=== PATIENT | female | born 2000 | race African-American/Black ===

== ENCOUNTER 2024-08-21 12:07 | Emergency (ER) | payer MEDICAID, SELFPAY ==
--- NOTE | 2024-08-21 13:11 | ED_ITS ---
HPI - General Adult General Chief complaint: General Medical Stated complaint: low iron Time Seen by Provider: 08/21/24 16:52 Source: patient Mode of arrival: ambulatory Limitations: no limitations History of Present Illness ED Provider: Elba Adan NP HPI narrative: Patient is a 24-year-old female who presents emergency department coming from [facility] for evaluation of generalized weakness and fatigue. She states that this typically happens due to having iron-deficiency anemia. She reports that she has not been taking her iron supplementation since April of this year. When asked, she states that her prescription ran out. She has a new prescription available at the pharmacy is getting transferred to a local pharmacy and [facility] staff will be picking this up on Saturday as they coordinate her medication administration. However, they wanted her to be checked out to make sure that she was not significantly anemic. She denies dizziness, lightheadedness, vision changes, neck pain, chest pain, shortness of breath, numbness or tingling of the extremities. Related Data Allergies Allergy/AdvReac Type Severity Reaction Status Date / Time olanzapine [From Zyprexa] AdvReac Confusion Verified 08/21/24 13:14 Review of Systems 2 Review of Systems: Yes all other systems are reviewed and are negative PMFSH Past Medical History Attestation statement: The following information was validated with the patient. Source: old records reviewed Social History Social History Advance Directives: No Advance Directives Information Provided: Yes Physical Exam ED Vital Signs: Vital Signs - 24 hr 08/21/24 13:12 08/21/24 16:57 Temperature 97.1 F 97.8 F Pulse Rate 82 71 Respiratory Rate 18 16 Blood Pressure 137/85 97/64 Pulse Oximetry 100 100 Oxygen Delivery Method Room Air Room Air BMI result Body Mass Index 49.1 Appearance: Alert.?Oriented to person, place and time. No acute distress.?Normal affect. Eyes: Pupils equal, round and reactive to light.? ENT: Pharynx normal.?? Neck: Normal inspection.? Neck supple.?? CVS: Heart sounds normal. Normal heart rate and rhythm.? Pulses normal.?? Respiratory: No respiratory distress.? Lung sounds clear to auscultation bilaterally?? Abdomen: Soft and non-tender. Normoactive bowel sounds. Skin: Skin warm and dry.? Normal skin color.? Extremities: No lower extremity edema.? No calf ttp? Neuro: Moves all extremities spontaneously. Sensation intact bilaterally. CN II- XII intact. No focal neuro deficits. Ambulates with normal steady gait. Course Course Course Narrative: RME, this is a rapid medical exam performed by Allan Rogel please refer to primary provider for complete H&P- 24 year old female with history of iron deficiency anemia presents for evaluation of weakness. She believes her iron is low because she has not been taking her iron supplementation since April. Plan for labs and iron studies Medical Decision Making Medical Decision Making [facility] Narrative: Patient is a 24-year-old female who presents emergency department for evaluation of generalized weakness and fatigue setting of not having been taking her iron supplementation over the past 4 months as it had ran out. There is a plan in place for her to begin taking the medication over the next 2 days, she declines a new prescription being sent to a local pharmacy so that she may pick this up to day, as the staff at [facility] need to arrange this accordingly. I reviewed serum labs obtained prior to my assumption of care, CBC is without leukocytosis anemia or thrombocytopenia. No significant electrolyte derangement. No KIM. Iron studies with a normal iron level and normal TIBC, iron percentage saturation slightly low at 12%, consistent with iron-deficiency. HCG is negative. Viral serologies are negative. She has no focal neurological deficits, not consistent with CVA. She is ambulatory with a steady gait. As this has been her symptoms consistently in the past with untreated iron deficiency, seems to be the most likely pathology. Differential Diagnosis Differential Diagnoses: The differential diagnosis associated with the presentation includes (See narrative above) Admission/Observation Consideration of admission/observation: Escalation of care including admission/observation considered Lab Data [facility] Lab Attestation statement: I reviewed the patient's lab results. (See narrative above) 08/21/24 15:19 08/21/24 15:19 Labs: Lab Results 08/21/24 Range/Units 15:19 WBC 7.0 (4.8-10.8) X10*3/uL RBC 4.63 (4.20-5.50) X10*6/uL Hgb 12.2 (12.0-16.0) g/dl Hct 37.9 (37.0-47.0) % MCV 81.9 (80.0-98.0) fL MCH 26.3 L (27.0-33.0) pg MCHC 32.2 (31.0-35.0) g/dl RDW 13.9 (11.0-16.0) % Plt Count 269 (160-400) X10*3/uL MPV 10.7 (9.4-12.3) fL Immature Gran % (Auto) 0.1 (0.0-0.4) % Neut % (Auto) 71.0 (45-73) % Lymph % (Auto) 22.7 (20-40) % [place] % (Auto) 5.2 (2-11) % Eos % (Auto) 0.6 (0-4) % Baso % (Auto) 0.4 (0-2) % Lymph # (Auto) 1.6 (1.2-4.9) X10*3/uL [place] # (Auto) 0.4 (0.1-1.2) X10*3/uL Eos # (Auto) 0.0 (0.0-0.4) X10*3/uL Baso # (Auto) 0.0 (0.0-0.2) X10*3/uL Abs Immat Gran (auto) 0.01 (0.00-0.03) X10*3/uL Absolute Neuts (auto) 4.9 (2.0-8.3) x10*3/uL Absolute Nucleated RBC 0.000 (0.0-0.012) X10*3/uL Nucleated RBC % (auto) 0.0 (0.0-0.2) /100WBC Sodium 139 (135-145) mmol/L Potassium 4.4 (3.3-5.1) mmol/L Chloride 109 H (96-108) mmol/L Carbon Dioxide 23 (22-29) mmol/L Anion Gap 11 L (12-20) BUN 10 (9-16) mg/dL Creatinine 0.83 (0.5-1.4) mg/dL Estim Creat Clear Calc 127.2 Estimated GFR > 60 Random Glucose 95 (60-115) mg/dL Calcium 9.8 (8.4-10.2) mg/dL Iron 34 (30-160) mcg/dL TIBC 284 (228-428) mcg/dL % Saturation 12 L (15-50) % Unsat Iron Binding 250 ug/dL Total Bilirubin 0.3 (0.0-1.0) mg/dL AST 21 (5-31) U/L ALT 21 (0-31) U/L Alkaline Phosphatase 51 (39-117) U/L Total Protein 7.7 (6.5-8.0) g/dL Albumin 4.3 (3.5-5.0) g/dL Lipase 10 (8-78) U/L Beta HCG, Quant < 2 mIU/mL Influenza Type A (PCR) NEGATIVE (Negative) Influenza Type B (PCR) NEGATIVE (Negative) RSV RNA Qual (PCR) NEGATIVE (Negative) SARS-CoV-2 RNA (RT-PCR) NEGATIVE (Negative) External Record Review External record reviewed: Outpatient record Prescription Management I considered prescription management with: Other (See narrative above) Discharge Plan Discharge Clinical Impression: Iron deficiency anemia Patient Disposition: Home, Self-Care Instructions: Iron Deficiency Anemia (ED), Iron Rich Diet (ED) Additional Instructions: As discussed, it is very important that you continue to take your iron supplement as prescribed to help improve your symptoms. As you know, these symptoms are very common with your iron deficiency. Return to emergency department any new or worsening symptoms or concerns Referrals: Physician,Unknown J [Primary Care Provider] - Print Language: Portuguese
[2024-08-21 13:12] VITALS: BP 137/85; PULSE 82; RESP 18; TEMP 36.2; O2SAT 100; BMI 49.1
[2024-08-21 15:23] LABS: MANUAL DIFF FLAG NO
[2024-08-21 15:30] LABS: Basophils Percent Auto 0.4 % (0-2); Eosinophils Percent Auto 0.6 % (0-4); Hematocrit 37.9 % (37.0-47.0); Hemoglobin 12.2 g/dl (12.0-16.0); Imm Gran Abs Auto 0.01 X10*3/uL (0.00-0.03); Imm Gran Pct Auto 0.1 % (0.0-0.4); Lymphocytes Absolute Auto 1.6 X10*3/uL (1.2-4.9); Lymphocytes Percent Auto 22.7 % (20-40); Mean Corpuscular HGB Conc 32.2 g/dl (31.0-35.0); Mean Corpuscular Hemoglobin 26.3 pg (27.0-33.0); Mean Corpuscular Volume 81.9 fL (80.0-98.0); Mean Platelet Volume 10.7 fL (9.4-12.3); Monocytes Absolute Auto 0.4 X10*3/uL (0.1-1.2); Monocytes Percent Auto 5.2 % (2-11); Neutrophils Absolute Auto 4.9 x10*3/uL (2.0-8.3); Platelet Count 269 X10*3/uL (160-400); Red Blood Count 4.63 X10*6/uL (4.20-5.50); Red Cell Distribution Width 13.9 % (11.0-16.0)
[2024-08-21 15:54] LABS: Albumin Level 4.3 g/dL (3.5-5.0); Anion Gap 11 (12-20); Aspartate Amino Transferase 21 U/L (5-31); Bilirubin Total 0.3 mg/dL (0.0-1.0); Blood Urea Nitrogen 10 mg/dL (9-16); Calcium 9.8 mg/dL (8.4-10.2); Carbon Dioxide 23 mmol/L (22-29); Chloride 109 mmol/L (96-108); Creatinine Clr Calc Pharmacy 127.2; Estimated Glomerular Filt Rate > 60; Glucose Random 95 mg/dL (60-115); HCG Quantitative < 2 mIU/mL; Iron 34 mcg/dL (30-160); Lipase 10 U/L (8-78); Percent Iron Saturation 12 % (15-50); Potassium 4.4 mmol/L (3.3-5.1); Sodium 139 mmol/L (135-145); Total Iron Binding Capacity 284 mcg/dL (228-428); Total Protein 7.7 g/dL (6.5-8.0); Unsaturated Iron Binding 250 ug/dL
[2024-08-21 16:05] LABS: Influenza A PCR NEGATIVE (Negative); Influenza B PCR NEGATIVE (Negative); Resp Syncy Virus RNA Qual PCR NEGATIVE (Negative); SARS COV2 PCR INHOUSE NEGATIVE (Negative)
[2024-08-21 16:23] LABS: Alanine Aminotransferase 21 U/L (0-31); Alkaline Phosphatase 51 U/L (39-117)
[2024-08-21 16:57] VITALS: BP 97/64; PULSE 71; RESP 16; TEMP 36.6; O2SAT 100
[2024-08-21] MEDS: Acetaminophen 325 MG TABLET 650 MG PO (17:33)
[2024-08-21 17:35] VITALS: BP 97/64; PULSE 71; RESP 16; TEMP 36.6; O2SAT 100
== END 2024-08-21 17:36 | disposition home or self-care (01) ==
PROVIDERS: Physician Assistant; Emergency Provider Emergency Medicine
DX: D50.9 Iron deficiency anemia, unspecified (principal); R53.1 Weakness; R53.83 Other fatigue; Z03.818 Encounter for observation for suspected exposure to other biological agents ruled out
CPT/HCPCS: 0241U; 80053; 83540; 83690; 84702; 85025; 99283

== ENCOUNTER 2024-09-19 18:20 | Emergency (ER) | payer MEDICAID, SELFPAY ==
[2024-09-19 18:36] VITALS: BP 124/60; PULSE 99; RESP 19; TEMP 36.6; O2SAT 99; BMI 39.6
--- NOTE | 2024-09-19 18:39 | ED_ITS ---
HPI - General Adult General Chief complaint: General Medical Stated complaint: Preg test? Having symptoms.Gave 8mos ago Time Seen by Provider: 09/19/24 20:02 Source: patient Mode of arrival: ambulatory Limitations: no limitations History of Present Illness ED Provider: NEWTON SILVERIO PA-C HPI narrative: 24 year old female with no significant past medical history presents to the ED t kike from [facility] requesting a test. Admits to symptoms of feeling hormonal , low iron levels (shown in recent blood work), and weight fluctuations. Reports similar symptoms with both of her pregnancies. She is currently taking daily iron supplementation. Reports negative urine tests x2 at home. Denies fever, chills, nausea or vomiting, vaginal discharge or bleeding, abdominal pain/cramping. She admits that her last menstrual period was over 17 months ago as she gave to her most recent child 8 months ago. She also reports Nexplanon insertion in March of 2024. Related Data Previous Rx's ?Medication ?Instructions ?Recorded ferrous sulfate 325 mg (65 mg 325 mg PO Q OTHER DAY #30 tabs 09/19/24 iron) tablet Allergies Allergy/AdvReac Type Severity Reaction Status Date / Time almond Allergy Rash Verified 09/19/24 18:38 peanut Allergy Anaphylaxis Verified 09/19/24 18:38 tree nut Allergy Anaphylaxis Verified 09/19/24 18:38 olanzapine [From Zyprexa] AdvReac Confusion Verified 09/19/24 18:38 Review of Systems Review of Systems: Constitutional: No fever, chills, fatigue, night sweats, weight changes ENT/Mouth: No ear pain, hearing loss, nasal congestion, sinus pain, rhinorrhea, sore throat Eyes: No eye pain, swelling, redness, vision changes, discharge Cardio: No chest pain, palpitations, SUAREZ, orthopnea, peripheral edema Pulm: No SOB, cough, sputum, wheezing, dyspnea, hemoptysis GI: No nausea, vomiting, hematemesis, abdominal pain, diarrhea, constipation, hematochezia, melena : No irregular bleeding, dysuria, frequency, urgency, hesitancy, hematuria, flank pain, urinary flow changes, urinary incontinence or retention MSK: No back pain, neck pain, joint pain, myalgias Skin: No lesions, rashes Neuro: No weakness, numbness, paresthesias, LOC, dizziness, headache Psych: No anxiety/panic, depression, SI/HI, AH/VH All other systems reviewed and are negative. [facility] Past Medical History Attestation statement: The following information was validated with the patient. Source: old records reviewed and nursing notes reviewed Social History Social History Advance Directives: No Advance Directives Information Provided: No Do you have a plan to hurt others: No Plan Physical Exam ED Vital Signs: Vital Signs - 24 hr 09/19/24 18:36 Temperature 98 F Pulse Rate 99 Respiratory Rate 19 Blood Pressure 124/60 Pulse Oximetry 99 BMI result Body Mass Index 39.6 Vital signs stable General: Well appearing, in no acute distress. Skin: Warm, dry, intact. No rashes or lesions. Head: Normocephalic, atraumatic. EENT: Hearing is intact b/l. Conjunctiva clear. Sclera is anicteric. PERRLA. EOM intact. Moist mucous membranes.?? Cardiac: Chest wall symmetric. RRR Lungs: Normal respiratory effort without accessory muscle use. CTA bilaterally Abdomen: Soft, non-tender, non-distended. No rebound tenderness or guarding. Positive BS x4. Neuro: AOx3. Normal speech. Ambulating with steady gait. Course Course Course Narrative: This is a Rapid Medical Examination (RME) performed by Cadence Silverio PA-C in triage. Full HPI, ROS, assessment and treatment plan per primary provider in the Main ED. 24 yo female here requesting test. reports symptoms of weight loss and low iron levels - which she experienced the last two times she was . states she feels very hormonal . LMP >17 months ago. he gave to her child 8 months ago and has not started her period since giving . Had nexplanon inserted in 04/01. Plan: test Reevaluation(s) Reevaluation #1: Both urine and serum tests are negative. I did discuss results with patient. Patient extremely agitated, still concerned that she was . Demanding ultrasound. Given that patient is currently on control and has had negative urine and serum test, I do not feel as though ultrasound is warranted at this time. Will provide her with outpatient referrals for follow-up. Patient agreeable with this. She also reports concern for iron deficiency however does take iron supplementation daily. She does not report any current bleeding. I did review blood work obtained approximately 1 month ago which showed mild iron deficiency. At this point I feel patient is stable for discharge with outpatient follow-up. Discussed worrisome signs and symptoms/when to return to the ED. Medical Decision Making Differential Diagnosis Differential Diagnoses: The differential diagnosis associated with the presentation includes As above Admission/Observation Not indicated Lab Data MDM Lab Attestation statement: I reviewed the patient's lab results. As above Labs: Lab Results 09/19/24 Range/Units 18:54 Beta HCG, Quant < 2 mIU/mL Urine Test NEGATIVE (NEGATIVE) Critical Care Time Critical Care Time Critical Care Time: No Discharge Plan Discharge Clinical Impression: Negative test Patient Disposition: Home, Self-Care Instructions: Safe Sex Practices (ED) Additional Instructions: You presented to the ED today requesting test. Both your blood and urine tests are negative. Practice safe sex. Follow up with your PCP as needed. You have also been provided with a referral to OBGYN. Call them to establish care, they will not call you. Return to the ED with any new or worsening symptoms. In the case of an emergency call 911. Prescriptions: New ferrous sulfate 325 mg (65 mg iron) tablet 325 mg PO Q OTHER DAY Qty: 30 0RF Referrals: [facility] [Provider Group] Print Language: Ukrainian
[2024-09-19 19:02] LABS: UPreg QC Valid YES; Urine Pregnancy NEGATIVE (NEGATIVE)
[2024-09-19 19:32] LABS: HCG Quantitative < 2 mIU/mL
[2024-09-19 20:33] VITALS: BP 116/92; PULSE 80; RESP 16; TEMP 37.6; O2SAT 98
[2024-09-19 20:35] VITALS: BP 116/92; PULSE 80; RESP 16; TEMP 37.6; O2SAT 98
== END 2024-09-19 20:36 | disposition home or self-care (01) ==
PROVIDERS: Physician Assistant Medical; Emergency Provider Emergency Medicine
DX: Z32.02 Encounter for pregnancy test, result negative (principal)
CPT/HCPCS: 36415; 81025; 84702; 99283

== ENCOUNTER 2024-11-19 20:02 | Emergency (ER) | payer MEDICAID, SELFPAY ==
[2024-11-19 20:05] VITALS: BP 126/65; PULSE 89; RESP 18; TEMP 36.1; O2SAT 98; BMI 31.2
--- NOTE | 2024-11-19 20:05 | ED_ITS ---
HPI - Abdominal Pain General Chief Complaint: Abdominal Pain Stated Complaint: severe abd pain Time Seen by Provider: 11/20/24 00:36 Source: patient Mode of arrival: ambulatory Limitations: no limitations History of Present Illness ED Provider: Dr. Janis Madden HPI narrative: Patient comes to the emergency room complaining of nausea vomiting, no diarrhea and back pain for 3 days. patient denies hematuria or dysuria. Patient unsure if she is . Patient states that she had positive test at home in September. Patient denies fever chills Related Data Previous Rx's ?Medication ?Instructions ?Recorded ferrous sulfate 325 mg (65 mg 325 mg PO Q OTHER DAY #30 tabs 09/19/24 iron) tablet acetaminophen 500 mg tablet 500 mg PO Q6H PRN fever or pain 11/20/24 #20 tabs levofloxacin 500 mg tablet 500 mg PO DAILY #9 tabs 11/20/24 Allergies Allergy/AdvReac Type Severity Reaction Status Date / Time almond Allergy Rash Verified 11/19/24 20:09 peanut Allergy Anaphylaxis Verified 11/19/24 20:09 tree nut Allergy Anaphylaxis Verified 11/19/24 20:09 olanzapine [From Zyprexa] AdvReac Confusion Verified 11/19/24 20:09 Review of Systems Review of Systems Constitutional : No Weight loss, No Fever, No Chills, No Night Sweats, No Fatigue, No Malaise ENT/Mouth : No Hearing loss, No Ear Pain, No Nasal Congestion, No Sinus Pain, No Hoarseness, No sore throat, No Rhinorrhea, No Swallowing Difficulty Eyes: No Eye Pain, No Swelling, No Redness, No Foreign Body, No Discharge, No Vision Changes Cardiovascular : No Chest Pain, No SOB, No Dyspnea on Exertion, No Orthopnea, No Edema, No Palpitations Respiratory : No Cough, No Sputum, No Wheezing, No Smoke Exposure, No Dyspnea Gastrointestinal : complaining of nausea and vomiting x1, No Diarrhea, No Constipation, No abdominal Pain, No Hematochezia, No Melena Genitourinary : no irregular bleeding, No Dysuria, No Urinary Frequency, No Hematuria, No Urinary Incontinence, No Urgency, complaining of bilateral Flank Pain, No Urinary Flow Changes, No Hesitancy Musculoskeletal : No joint pain, No Myalgias, No Joint Swelling Skin : No Skin Lesions, No rash Neuro : No Weakness, No Numbness, No Paresthesias, No Loss of Consciousness, No Dizziness, No Headache Psych : No Anxiety/Panic, No Depression, No SI/HI/AH/VH, No Social Issues, Heme/Lymph: No Bruising, No Bleeding,No Lymphadenopathy Endocrine : No Polyuria, No Polydipsia, No Temperature Intolerance [facility] Social History Social History Advance Directives: No Advance Directives Information Provided: Yes Do you have a plan to hurt others: No Plan Physical Exam ED Vital Signs: Vital Signs - 24 hr 11/19/24 20:05 Temperature 97.0 F Pulse Rate 89 Respiratory Rate 18 Blood Pressure 126/65 Pulse Oximetry 98 Oxygen Delivery Method Room Air BMI result Body Mass Index 31.2 Const Other: Appearance: Alert. Oriented X3. No acute distress. Eyes: Pupils equal, round and reactive to light. ENT: Pharynx normal. Neck: Normal inspection. Neck supple. No lymph nodes noted. No crepitus CVS: Normal heart rate and rhythm. Pulses normal. Normal S1 and S2 Respiratory: No respiratory distress. Breath sounds normal. No Wheezing. No rales Abdomen: Soft and nontender. No rigidity. No distention. bilateral CVA tenderness Skin: Skin warm and dry. Normal skin color. Normal skin turgor. Extremities: No lower extremity edema. No Lacerations. No Rash Neuro: Oriented X 3. No motor deficit. No sensory deficit. Moving all extremities. No slurred speech. CN 2 through 12 grossly intact Psych: calm, cooperative, normal affect Course Course Course Narrative: This is an RME: Additional HPI, ROS, PE not included below will be deferred to primary provider. RME assessment and note performed by: Melanie Brandon PA-C This is a 24-year-old female who presents emergency department complaints lower abdominal pain started last 2 days. Reporting nausea and vomiting. LMP was in September. Pt states that she was told that she was at the end September at [facility] through an ultrasound but the was in her uterine lining and spontaneously miscarried. Plan: Labs, UA, further ER eval needed. Medical Decision Making Medical Decision Making MDM Narrative: my interpretation of labs: Patient's white blood cell count 14.5, no significant abnormalities in rest of hematology, no abnormality in patient's chemistry, normal magnesium, normal LFTs, test negative urinalysis positive for UTI. patient's vitals: No significant abnormality in patient's blood pressure, normal heart rate no fever. Sepsis is not suspected. Clinically, patient has pyelonephritis. First dose of Levaquin and a dose of IM Toradol given in the ED Differential Diagnosis Differential Diagnoses: The differential diagnosis associated with the presentation includes ( ureterolithiasis, UTI, pyelonephritis, musculoskeletal pain) Lab Data MDM Lab Attestation statement: I reviewed the patient's lab results. 11/19/24 20:31 11/19/24 20:31 Labs: Lab Results 11/19/24 11/19/24 Range/Units 20:31 23:30 WBC 14.5 H (4.8-10.8) X10*3/uL RBC 4.42 (4.20-5.50) X10*6/uL Hgb 11.8 L (12.0-16.0) g/dl Hct 38.0 (37.0-47.0) % MCV 86.0 (80.0-98.0) fL MCH 26.7 L (27.0-33.0) pg MCHC 31.1 (31.0-35.0) g/dl RDW 15.7 (11.0-16.0) % Plt Count 271 (160-400) X10*3/uL MPV 10.7 (9.4-12.3) fL Immature Gran % (Auto) 0.3 (0.0-0.4) % Neut % (Auto) 78.5 H (45-73) % Lymph % (Auto) 16.2 L (20-40) % [place] % (Auto) 4.3 (2-11) % Eos % (Auto) 0.5 (0-4) % Baso % (Auto) 0.2 (0-2) % Lymph # (Auto) 2.4 (1.2-4.9) X10*3/uL Garrett # (Auto) 0.6 (0.1-1.2) X10*3/uL Eos # (Auto) 0.1 (0.0-0.4) X10*3/uL Baso # (Auto) 0.0 (0.0-0.2) X10*3/uL Abs Immat Gran (auto) 0.04 H (0.00-0.03) X10*3/uL Absolute Neuts (auto) 11.4 H (2.0-8.3) x10*3/uL Absolute Nucleated RBC 0.000 (0.0-0.012) X10*3/uL Nucleated RBC % (auto) 0.0 (0.0-0.2) /100WBC Sodium 140 (135-145) mmol/L Potassium 3.8 (3.3-5.1) mmol/L Chloride 110 H (96-108) mmol/L Carbon Dioxide 22 (22-29) mmol/L Anion Gap 12 (12-20) BUN 17 H (9-16) mg/dL Creatinine 0.74 (0.5-1.4) mg/dL Estim Creat Clear Calc 110.3 Estimated GFR > 60 Random Glucose 92 (60-115) mg/dL Calcium 9.5 (8.4-10.2) mg/dL Magnesium 2.1 (1.6-2.6) mg/dL Total Bilirubin 0.3 (0.0-1.0) mg/dL Direct Bilirubin 0.1 (0.0-0.5) mg/dL AST 17 (5-31) U/L ALT 15 (0-31) U/L Alkaline Phosphatase 70 (39-117) U/L Total Protein 7.6 (6.5-8.0) g/dL Albumin 4.1 (3.5-5.0) g/dL Beta HCG, Quant < 2 mIU/mL Urine Color Yellow Urine Appearance Cloudy Urine pH 6.5 (5.0-9.0) Ur Specific [place] 1.025 (1.005-1.025) Urine Protein Negative (Neg-Trace) mg/dL Urine Glucose (UA) Negative (Negative) mg/dL Urine Ketones Trace (Negative) mg/dL Urine Blood Moderate (2+) H (Negative) Urine Nitrite Positive H (Negative) Ur Leukocyte Esterase Small (1+) H (Negative) Urine RBC 6-10 H (0-2) /HPF Urine WBC 6-10 H (0-5) /HPF Ur Squamous Epith Cells 0-2 (0-2) /HPF Urine Bacteria 4+ (None Seen) Hyaline Casts 0-2 (0-2) /LPF Discharge Plan Discharge Clinical Impression: Pyelonephritis Patient Disposition: Home, Self-Care Instructions: Kidney Infection (ED) Additional Instructions: Please follow-up with your primary care physician tomorrow. If you have any worsening or new symptoms, please return to the emergency room or call 911 Prescriptions: New levofloxacin 500 mg tablet 500 mg PO DAILY Qty: 9 0RF acetaminophen 500 mg tablet 500 mg PO Q6H PRN (Reason: fever or pain) Qty: 20 0RF No Action ferrous sulfate 325 mg (65 mg iron) tablet 325 mg PO Q OTHER DAY Qty: 30 0RF Stand Alone Forms: Work/School Release Print Language: Palestinian
[2024-11-19 20:36] LABS: MANUAL DIFF FLAG NO
[2024-11-19 20:38] LABS: Basophils Percent Auto 0.2 % (0-2); Eosinophils Absolute Auto 0.1 X10*3/uL (0.0-0.4); Eosinophils Percent Auto 0.5 % (0-4); Hemoglobin 11.8 g/dl (12.0-16.0); Imm Gran Abs Auto 0.04 X10*3/uL (0.00-0.03); Imm Gran Pct Auto 0.3 % (0.0-0.4); Lymphocytes Absolute Auto 2.4 X10*3/uL (1.2-4.9); Lymphocytes Percent Auto 16.2 % (20-40); Mean Corpuscular HGB Conc 31.1 g/dl (31.0-35.0); Mean Corpuscular Hemoglobin 26.7 pg (27.0-33.0); Mean Platelet Volume 10.7 fL (9.4-12.3); Monocytes Absolute Auto 0.6 X10*3/uL (0.1-1.2); Monocytes Percent Auto 4.3 % (2-11); Neutrophils Absolute Auto 11.4 x10*3/uL (2.0-8.3); Neutrophils Percent Auto 78.5 % (45-73); Platelet Count 271 X10*3/uL (160-400); Red Blood Count 4.42 X10*6/uL (4.20-5.50); Red Cell Distribution Width 15.7 % (11.0-16.0); White Blood Count 14.5 X10*3/uL (4.8-10.8)
[2024-11-19 20:59] LABS: Alanine Aminotransferase 15 U/L (0-31); Albumin Level 4.1 g/dL (3.5-5.0); Alkaline Phosphatase 70 U/L (39-117); Anion Gap 12 (12-20); Aspartate Amino Transferase 17 U/L (5-31); Bilirubin Direct 0.1 mg/dL (0.0-0.5); Bilirubin Total 0.3 mg/dL (0.0-1.0); Blood Urea Nitrogen 17 mg/dL (9-16); Calcium 9.5 mg/dL (8.4-10.2); Carbon Dioxide 22 mmol/L (22-29); Chloride 110 mmol/L (96-108); Creatinine Clr Calc Pharmacy 110.3; Estimated Glomerular Filt Rate > 60; Glucose Random 92 mg/dL (60-115); Magnesium 2.1 mg/dL (1.6-2.6); Potassium 3.8 mmol/L (3.3-5.1); Sodium 140 mmol/L (135-145); Total Protein 7.6 g/dL (6.5-8.0)
[2024-11-19 21:04] LABS: HCG Quantitative < 2 mIU/mL
[2024-11-19 23:40] LABS: Appearance Urine Cloudy; Color Urine Yellow; Glucose Urine UA Negative (Negative); Leukocyte Esterase Urine Small (1+) (Negative); Nitrite Urine Positive (Negative); PH 6.5 (5.0-9.0); Specific Gravity - Urine 1.025 (1.005-1.025); UMIC TRIGGER UACC YES; Urine Blood Moderate (2+) (Negative); Urine Ketones Trace mg/dL (Negative); Urine Protein Negative (Neg-Trace)
[2024-11-19 23:43] LABS: Bacteria Urine 4+ (None Seen); Hyaline Casts Urine 0-2 /LPF (0-2); Squamous Epithelial Cell Urine 0-2 /HPF (0-2); UACC Culture Trigger YES
--- OUTSIDE RECORDS SUMMARY | 2024-11-20 00:08 | XMS_ITS | Clinical Summary ---
Author Organization [facility] Address [address] [place] [address] Phone Care Team Providers Care [employer] Supervisor Name Role Phone Physician, No Pcp Primary Care Provider Unavaila ble Allergies Active Allergy Reactions Criticality Noted Date Comments [place] 03/31/2024 Kiwi 02/11/2024 Olanzapine 07/26/2022 Peanut Hives 07/26/2022 Pineapple 02/11/2024 Tree Nuts 01/13/2024 Medications EPINEPHrine (EPIPEN) 0.3 mg/0.3 mL injection Inject 0.3 mL (0.3 mg total) into the thigh if needed for anaphylaxis . 1 each 10/13/2024 Active cetirizine (ZyrTEC) 10 mg tablet Take 1 tablet (10 mg total) by mouth 2 (two) times a day for 7 days. 14 each 10/13/2024 Active Encounters Date Type Department Care Team Description 10/12/2024 10:49 PM EST - 10/13/2024 12:42 AM EST Emergency [facility] Emergency [address] [place] [address] Allergic reaction, initial encounter (Primary Dx) Discharge Disposition: Home or Self Care from Last 3 Months Medical History Medical History Date Comments Asthma Social History Tobacco Use Types Packs/Day Years Used Date Smoking Tobacco: Never Smokeless Tobacco: Never Tobacco Cessation:Counseling Given: Not Answered Comments Unknown Sex and Gender Information Value Date Recorded Sex Assigned at Female 10/12/2024 11:05 PM EST Legal Sex Female 6:19 PM EST Gender Identity Female 10/12/2024 11:05 PM EST Sexual Orientation Straight 10/12/2024 11 :05 PM EST Obstetrics History Comments No BC last perjune re cent miscarriage Last Filed Vital Signs Vital Sign Reading Time Taken Comments Blood Pressure 107/56 10/13/2024 12:28 AM EST Pulse 86 10/13/2024 12:28 AM EST Temperature 36.6 ??C (97.9 ??F) 10/13/2024 12:[address] Respiratory Rate 18 10/13/2024 12:28 AM EST Oxygen Saturation 97% 10/13/2024 12:28 AM EST Inhaled Oxygen Concentration - - Weight 94.3 kg (208 lb) 10/12/2024 10:37 PM EST Height 154.9 cm (5' 1 ) 10/12/2024 10:37 PM EST Body Mass Index 39.3 10/12/2024 10:37 PM EST Plan of Treatment Health Maintenance Due Date Last Done Comments Gonorrhea/Chlamydia Screening 2002 HPV Vaccines (1 - 3-dose series) 2017 Meningococcal B Vacine (1 of 2 - Standard) 2018 DTaP,Tdap,and Td Vaccines (1 - Tdap) 2021 Hepatitis B Vaccines (1 of 3 - 19+ 3-dose series) 2021 Depression Screening 08/11/2022 HIV Screening 08/11/2022 Hepatitis C Screening 08/11/2022 Social Influencers of Health Screening 08/11/2022 Cervical Cancer Screening: P ap Smear 2023 COVID-19 Vaccine ( - 2023-2 5 season) 2024 Influenza Vaccine (#1) 2024 HIB Vaccines Aged Out No longer eligi ble based on patient's age to complete this topic Hepatitis A Vaccines Aged Out No long er eligible based on patient's age to complete this topic IPV Vaccines Aged Out No longer eligi ble based on patient's age to complete this topic MMR Vaccines Aged Out No longer eligi ble based on patient's age to complete this topic Meningococcal ACWY Vaccine Aged Out N o longer eligible based on patient's age to complete this topic Pneumococcal Vaccine: Pediat rics (0 to 5 Years) and At-Risk Patients (6 to 64 Years) Aged Out No longer eligible b ased on patient's age to complete this topic RSV Immunization Patients Un ann 20 months Aged Out No longer eligible b ased on patient's age to complete this topic Varicella Vaccines Aged Out No longer eligible based on patient's age to complete this topic Insurance MEDICAID - [place] Care Teams [employer] Supervisor Relationship Specialty Start Date End Date Physician, No Pcp PCP - General 10/12/24
[2024-11-20] MEDS: levoFLOXacin 500 MG TABLET PO (01:08)
[2024-11-20] MEDS: Ketorolac Tromethamine 30 MG/ML VIAL IM (01:08)
[2024-11-20 01:19] VITALS: BP 116/72; PULSE 62; RESP 16; TEMP 36.6; O2SAT 95
== END 2024-11-20 01:30 | disposition home or self-care (01) ==
PROVIDERS: Physician Assistant Medical; Emergency Provider Emergency Medicine
DX: N12 Tubulo-interstitial nephritis, not specified as acute or chronic (principal); N39.0 Urinary tract infection, site not specified; R11.2 Nausea with vomiting, unspecified; R10.2 Pelvic and perineal pain; Z79.899 Other long term (current) drug therapy
CPT/HCPCS: 36415; 80048; 80076; 81001; 83735; 84702; 85025; 87086; 96372; 99284; J1885

== ENCOUNTER 2025-01-21 07:37 | Emergency (ER) | payer MEDICAID, SELFPAY ==
[2025-01-21 07:47] VITALS: BP 93/64; PULSE 72; RESP 16; TEMP 36.8; O2SAT 98; BMI 41.1
[2025-01-21 08:29] VITALS: BP 105/65; PULSE 75
[2025-01-21] MEDS: EPINEPHrine 1 MG/ML VIAL 0.3 MG IM (08:29)
[2025-01-21] MEDS: diphenhydrAMINE HCL 25 MG CAPSULE 50 MG PO (08:29)
--- NOTE | 2025-01-21 08:36 | PC.NURSE ---
patient medicated per the MAR. educated on the use of own epipen at home, patient verbalizes understanding
--- NOTE | 2025-01-21 08:43 | ED_ITS ---
HPI - Allergic Reaction General Chief complaint: Allergic Reaction Stated complaint: allergic reaction Time Seen by Provider: 01/21/25 08:05 Source: patient Mode of arrival: ambulatory Limitations: no limitations History of Present Illness HPI narrative: This is a 24 years old female patient presented to the emergency department complaining of allergic reaction she states that chest feel tight and she has a sore throat discomfort after eating apple fritter. She is ambulatory to the emergency department MD complaint: allergic reaction Onset (ago): hour(s) (1) Exposure: food Symptoms: other (Throat pain) Severity: moderate Treatment prior to arrival: none Related Data Previous Rx's ?Medication ?Instructions ?Recorded ferrous sulfate 325 mg (65 mg 325 mg PO Q OTHER DAY #30 tabs 09/19/24 iron) tablet acetaminophen 500 mg tablet 500 mg PO Q6H PRN fever or pain 11/20/24 #20 tabs levofloxacin 500 mg tablet 500 mg PO DAILY #9 tabs 11/20/24 Allergies Allergy/AdvReac Type Severity Reaction Status Date / Time almond Allergy Rash Verified 01/21/25 07:52 peanut Allergy Anaphylaxis Verified 01/21/25 07:52 tree nut Allergy Anaphylaxis Verified 01/21/25 07:52 olanzapine [From Zyprexa] AdvReac Confusion Verified 01/21/25 07:52 Review of Systems Constitutional: Constitutional: Reports no additional constitutional complaints ENT: Reports other (Throat pain) Respiratory: Respiratory: Reports no additional respiratory complaints PMFSH Past Medical History Attestation statement: The following information was validated with the patient. Social History Social History Advance Directives: No Advance Directives Information Provided: Yes Physical Exam ED Vital Signs: Vital Signs - 24 hr 01/21/25 07:47 01/21/25 08:29 01/21/25 10:00 Temperature 98.2 F 97.9 F Pulse Rate 72 75 60 Respiratory Rate 16 18 Blood Pressure 93/64 105/65 107/65 Pulse Oximetry 98 100 Oxygen Delivery Method Room Air Room Air BMI result Body Mass Index 41.1 No acute distress comfortable in the stretcher Const General: cooperative Nutritional Appearance: well nourished Orientation/consciousness: patient oriented x3 Limitations: no limitations HENMT Head: Yes normal to inspection Ears: hearing grossly normal bilaterally General nose exam: Normal external nose present Mouth: Normal oral and palatal mucosa present Throat: Yes posterior oropharynx normal Neck Neck: Yes normal visual inspection Chest Chest palpation & inspection: normal inspection of the chest Cardio Jugular venous distension: no JVD Rate: regular rate Rhythm: regular rhythm GI Inspection: Yes normal to inspection Palpation (GI): Soft to palpation Skin General skin exam: no rashes or lesions noted Lesions: no lesions Rashes: no rashes Neuro General: patient oriented x3 Course Reevaluation(s) Reevaluation #1: On re-examination she is completely asymptomatic lungs are clear she was obse rved in the emergency room for about 3 hours after the epi injection she is okay to be discharged at this point, she already has an EpiPen at home she does not need a new prescription Time: 11:34 Medications Administered Discontinued Medications Generic Name Dose Route Start Last Admin Trade Name Freq PRN Reason Stop Dose Admin Diphenhydramine HCl 50 mg 01/21/25 08:22 01/21/25 08:29 Diphenhydramine Hcl 25 Mg Capsule PO 01/21/25 08:23 50 mg ONCE ONE Administration Epinephrine 0.3 mg 01/21/25 08:22 01/21/25 08:29 Epinephrine 1 Mg/Ml Vial IM 01/21/25 08:23 0.3 mg STAT STA Administration Medical Decision Making Medical Decision Making [facility] Narrative: Patient is here with a an allergic reaction we will administer EpiPen Benadryl and reassessed Differential Diagnosis Differential Diagnoses: The differential diagnosis associated with the presentation includes Allergy reaction/angioedema/ Admission/Observation Consideration of admission/observation: Escalation of care including admission/observation considered Critical Care Time Critical Care Time Critical Care Time: Yes Total Critical Care Time: 60 Attestation: Allergic reaction an EpiPen injected Discharge Plan Discharge Clinical Impression: Allergic reaction Patient Disposition: Home, Self-Care Instructions: Anaphylaxis (ED) Additional Instructions: Follow-up with your primary care physician return if worse use EpiPen as needed Prescriptions: No Action levofloxacin 500 mg tablet 500 mg PO DAILY Qty: 9 0RF acetaminophen 500 mg tablet 500 mg PO Q6H PRN (Reason: fever or pain) Qty: 20 0RF ferrous sulfate 325 mg (65 mg iron) tablet 325 mg PO Q OTHER DAY Qty: 30 0RF Referrals: Physician,None [Primary Care Provider] - 2 days Print Language: Turkish
--- OUTSIDE RECORDS SUMMARY | 2025-01-21 08:50 | XMS_ITS | Patient Health Record ---
Author Organization [facility] Address [address], [place] [id number] Care Team Providers Care Blocker Automatic Name Role Phone No, PCP Primary Care Provider Unavailabl e [facility] Unavailable [phone] Reason For Referral No Information Medications Medication SIG (Take, Route, Frequency, Duration) Notes Start Date End Date Status albuterol 09/09/2024 Active Plan Of Treatment Pending Test Test Name Order Date D: Treatment Plan Completed 04/06/2009 Insurance Providers Payer Name Payer Address Payer Phone Subscriber Number Group Number Insured Name Patient Relationship to Insured Coverage Start Date Coverage End Date [place] Medicaid Standard [address] [place] [address] [id number] Cinthya Wang Self - patient is the insured 3 [facility] [address] [place] [address] [id number] Cinthya Wang Self - patient is the insured 3 Medical (General) History Medical History History ICD Code Healthy asthma-- inhaler in winter only
--- OUTSIDE RECORDS SUMMARY | 2025-01-21 08:50 | XMS_ITS | Clinical Summary ---
Author Organization [facility] Address [address] [place] [address] Phone Care Team Providers Care Feed Handler Name Role Phone Physician, No Pcp Primary Care Provider Unavaila ble Allergies Active Allergy Reactions Criticality Noted Date Comments [place] 03/31/2024 Kiwi 02/11/2024 Olanzapine 07/26/2022 Peanut Hives 07/26/2022 Pineapple 02/11/2024 Tree Nuts 01/13/2024 Medications EPINEPHrine (EPIPEN) 0.3 mg/0.3 mL injection Inject 0.3 mL (0.3 mg total) into the thigh if needed for anaphylaxis . 1 each 10/13/2024 Active cetirizine (ZyrTEC) 10 mg tablet Take 1 tablet (10 mg total) by mouth 2 (two) times a day for 7 days. 14 each 10/13/2024 Active Medical History Medical History Date Comments Asthma [...] (1 - 3-dose series) 2017 Meningococcal B Vaccine (1 o f 2 - Standard) 2018 DTaP,Tdap,and Td Vaccines (1 - Tdap) 2021 Hepatitis B Vaccines (1 of 3 - 19+ 3-dose series) 2021 Depression Screening 08/11/2022 HIV Screening 08/11/2022 Hepatitis C Screening 08/11/2022 Social Influencers of Health Screening 08/11/2022 Cervical Cancer Screening: P ap Smear 2023 COVID-19 Vaccine ( - 2023-2 5 season) 2024 Influenza Vaccine (Season Ended) 2025 HIB Vaccines Aged Out No longer eligi [...] patient's [place] [id number] MEDICAID - [place] Care Teams Feed Handler Relationship Specialty Start Date End Date Physician, No Pcp PCP - General 10/12/24
[2025-01-21 10:00] VITALS: BP 107/65; PULSE 60; RESP 18; TEMP 36.6; O2SAT 100
[2025-01-21 11:43] VITALS: BP 107/65; PULSE 60; RESP 18; TEMP 36.6; O2SAT 100
== END 2025-01-21 11:58 | disposition home or self-care (01) ==
PROVIDERS: Emergency Provider Emergency Medicine
DX: T78.1XXA Other adverse food reactions, not elsewhere classified, initial encounter (principal); J02.9 Acute pharyngitis, unspecified; X58.XXXA Exposure to other specified factors, initial encounter
CPT/HCPCS: 96372; 99284; J0171